=== PATIENT | male | born 1970 | race African-American/Black ===

== ENCOUNTER 2018-08-27 07:12 | Emergency (ER) | payer OTHER ==
[~2018-08-27] VITALS: Ht 188 cm; Wt 98.0 kg
[2018-08-27 07:56] VITALS: BP 148/99
[2018-08-27] MEDS ORDERED: PREDNISONE 20MG TABLET PO STA (11:15)
[2018-08-27] MEDS ORDERED: ALBUTEROL (0.083%) 2.5MG/3ML NEB HHN STA (11:15)
[2018-08-27] MEDS ORDERED: IPRATROPIUM BROMIDE (0.02%) 0.5MG/2.5ML NEB HHN STA (11:15)
[2018-08-27 13:11] LABS: BASOPHILS % 0.1 % (0.0-2.0); EOSINOPHILS % 0.6 % (0.0-5.0); HEMATOCRIT. 42.2 % (42.0-52.0); HEMOGLOBIN. 14.2 g/dL (14.0-18.0); LYMPHOCYTES % 30.8 % (20.0-50.0); MEAN CORPUSCULAR HEMOGLOBIN 29.4 pg (28.0-32.0); MEAN CORPUSCULAR VOLUME 87.3 fL (80.0-94.0); MEAN PLATELET VOLUME 7.5 fl (7.4-10.4); MONOCYTES % 6.5 % (2.0-8.0); PLATELET 279 x1000/uL (130-400); RED BLOOD CELL COUNT 4.83 mill/uL (4.7-6.1); RED CELL DISTRIBUTION WIDTH 14.2 % (11.6-14.6)
[2018-08-27 13:16] LABS: CHLORIDE 107 mEq/L (98-107)
== END 2018-08-27 13:50 | disposition home or self-care (01) ==
LOC: ER 07:29
DX: J45.909 Unspecified asthma, uncomplicated (principal); R03.0 Elevated blood-pressure reading, without diagnosis of hypertension; F12.90 Cannabis use, unspecified, uncomplicated
CPT/HCPCS: 36415; 71045; 80053; 83880; 84484; 85025; 93005; 94640; 99284; J7512; J7611

== ENCOUNTER 2025-04-23 22:41 | Emergency (ER) | payer OTHER ==
[~2025-04-23] VITALS: Ht 188 cm; Wt 102.0 kg
[2025-04-23 23:06] VITALS: O2SAT 98
[2025-04-23] MEDS ORDERED: AMOX1TAB16 MT (23:22)
[2025-04-23] MEDS ORDERED: IBUP-2028 MT (23:22)
[2025-04-23 23:36] VITALS: BP 140/94; PULSE 77; RESP 13; TEMP 36.7; O2SAT 97
== END 2025-04-23 23:40 | disposition home or self-care (01) ==
LOC: ER 22:41
DX: H66.93 Otitis media, unspecified, bilateral (principal); F12.90 Cannabis use, unspecified, uncomplicated; J45.909 Unspecified asthma, uncomplicated; Z79.899 Other long term (current) drug therapy
CPT/HCPCS: 99281; 99283

== ENCOUNTER 2025-04-26 06:20 | Emergency (ER) | payer OTHER ==
[~2025-04-26] VITALS: Ht 188 cm; Wt 104.0 kg
[~2025-04-26 06:20] MED LIST: AMOX1TAB16 MT; IBUP-2028 MT
[2025-04-26 06:27] VITALS: O2SAT 98
[2025-04-26 07:52] VITALS: BP 155/96; PULSE 77; RESP 15; TEMP 36.6; O2SAT 99
== END 2025-04-26 07:53 | disposition home or self-care (01) ==
LOC: ER 06:20
DX: H83.2X1 Labyrinthine dysfunction, right ear (principal); B34.9 Viral infection, unspecified; R05.9 Cough, unspecified; R09.81 Nasal congestion; J45.909 Unspecified asthma, uncomplicated
CPT/HCPCS: 99282